=== PATIENT | female | born 1960 | race Caucasian/White ===

== ENCOUNTER 2018-11-29 10:03 | Day surgery (SDC) | payer BC ==
[2018-11-22 14:50] VITALS: BMI 27.0
[2018-11-29] MEDS ORDERED: LIDOCAINE HCL/PF 2% SDV 5ML VIAL ONE (11:00)
[2018-11-29] MEDS ORDERED: PROPOFOL 20 ML ONE ×2 (11:00)
[2018-11-29 11:54] VITALS: TEMP 97.9
[2018-11-29 12:19] VITALS: BP 112/78; PULSE 82
== END 2018-11-29 12:19 | disposition home or self-care (01) ==
LOC: FASU-ENDO 10:03
PROVIDERS: ATTEND Internal Medicine Gastroenterology
PROC: 0DJD8ZZ Inspection of Lower Intestinal Tract, Via Natural or Artificial Opening Endoscopic (ICD-10-PCS; principal; 2018-11-29 11:05)
DX: Z12.11 Encounter for screening for malignant neoplasm of colon (principal)